=== PATIENT | female | born 1985 | race Caucasian/White ===

== ENCOUNTER 2020-06-16 12:32 | Outpatient (REF) | payer BC, SELFPAY ==
[2020-06-16 12:59] LABS: COVID-19 Test Negative (Negative)
== END 2020-06-16 12:33 | disposition home or self-care (01) ==
LOC: HO.LAB 12:32
PROVIDERS: Visit Provider Internal Medicine
DX: Z20.828 Contact with and (suspected) exposure to other viral communicable diseases (principal)
CPT/HCPCS: 87635

== ENCOUNTER 2020-06-20 12:01 | Outpatient (REF) | payer BC, SELFPAY ==
[2020-06-20 12:21] LABS: COVID-19 Test Negative (Negative)
== END 2020-06-20 12:02 | disposition home or self-care (01) ==
LOC: HO.LAB 12:01
PROVIDERS: Visit Provider Internal Medicine
DX: Z20.828 Contact with and (suspected) exposure to other viral communicable diseases (principal)
CPT/HCPCS: 87635

== ENCOUNTER 2020-07-15 17:44 | Outpatient (REF) | payer OTHER, BC, SELFPAY ==
[2020-07-15 18:24] LABS: COVID-19 Test Negative (Negative); IDNOW Serial# 55D5AD1C
== END 2020-07-15 17:45 | disposition home or self-care (01) ==
LOC: HO.EMPCOV 17:44
PROVIDERS: Visit Provider Internal Medicine
DX: Z20.828 Contact with and (suspected) exposure to other viral communicable diseases (principal)
CPT/HCPCS: 87635; C9803

== ENCOUNTER 2020-11-29 02:58 | Emergency (ER) | payer BC, SELFPAY ==
[2020-11-29 03:01] VITALS: RESP 16; BMI 21.2
[2020-11-29] MEDS: 0.9 % Sodium Chloride 1,000 ML 999 ML IV (03:09)
[2020-11-29] MEDS: Ketorolac Tromethamine 30 MG/ML VIAL IVPUSH (03:09)
[2020-11-29 03:10] LABS: MANUAL DIFF FLAG NO
[2020-11-29 03:11] LABS: Basophils Percent Auto 0.3 % (0-2); Eosinophils Absolute Auto 0.2 X10*3/uL (0.0-0.4); Eosinophils Percent Auto 1.4 % (0-4); Hematocrit 34.8 % (37-47); Hemoglobin 11.6 g/dl (12.0-16.0); Imm Gran Abs Auto 0.05 X10*3/uL (0.00-0.03); Imm Gran Pct Auto 0.4 % (0.0-0.4); Lymphocytes Absolute Auto 1.8 X10*3/uL (1.2-4.9); Lymphocytes Percent Auto 15.1 % (20-40); Mean Corpuscular HGB Conc 33.3 g/dl (31.0-35.0); Mean Corpuscular Hemoglobin 29.7 pg (27.0-33.0); Mean Corpuscular Volume 89.2 fL (80-98); Mean Platelet Volume 10.6 fL (9.4-12.3); Monocytes Absolute Auto 0.9 X10*3/uL (0.1-1.2); Monocytes Percent Auto 7.5 % (2-11); Neutrophils Absolute Auto 9.1 X10*3/uL (2.0-8.3); Neutrophils Percent Auto 75.3 % (45-73); Platelet Count 189 X10*3/uL (160-400); Red Cell Distribution Width 11.8 % (11.0-16.0); White Blood Count 12.2 X10*3/uL (4.8-10.8)
[2020-11-29 03:39] LABS: Alanine Aminotransferase 11 U/L (0-31); Albumin Level 4.1 g/dL (3.5-5.0); Alkaline Phosphatase 53 U/L (39-117); Anion Gap 12 (12-20); Aspartate Amino Transferase 14 U/L (5-31); Bilirubin Direct < 0.2 mg/dL (0.0-0.5); Bilirubin Total 0.3 mg/dL (0.0-1.0); Blood Urea Nitrogen 14 mg/dL (9-16); Calcium 8.8 mg/dL (8.4-10.2); Carbon Dioxide 28 mmol/L (22-29); Chloride 103 mmol/L (96-108); Estimated Glomerular Filt Rate > 60; Glucose Random 118 mg/dL (60-115); Lipase 45 U/L (8-78); Potassium 4.4 mmol/L (3.3-5.1); Sodium 139 mmol/L (135-145); Total Protein 6.8 g/dL (6.5-8.0)
--- NOTE | 2020-11-29 03:59 | ED_ITS ---
HPI - Abdominal Pain General Chief Complaint: Abdominal Pain Stated Complaint: Abd pain Time Seen by Provider: 11/29/20 03:01 Related Data Previous Rx's Medication Instructions Recorded ibuprofen 400 mg PO Q6H PRN #20 tab 11/29/20 ondansetron 4 mg PO TID PRN 5 Days #10 tab 11/29/20 Allergies Allergy/AdvReac Type Severity Reaction Status Date / Time adenosine [ADENOSINE] AdvReac Unknown VOMITING Unverified 05/12/20 18:09 Physical Exam Vital Signs: Vital Signs: Last Vital Signs Resp 16 11/29/20 03:01 Body Mass Index 21.2 MDM - Abdominal Pain Lab Data Result diagrams: 11/29/20 03:05 11/29/20 03:05 Labs: Lab Results 11/29/20 11/29/20 Range/Units 03:05 03:05 WBC 12.2 H (4.8-10.8) X10*3/uL RBC 3.90 L (4.20-5.50) X10*6/uL Hgb 11.6 L (12.0-16.0) g/dl Hct 34.8 L (37-47) % MCV 89.2 (80-98) fL MCH 29.7 (27.0-33.0) pg MCHC 33.3 (31.0-35.0) g/dl RDW 11.8 (11.0-16.0) % Plt Count 189 (160-400) X10*3/uL MPV 10.6 (9.4-12.3) fL Immature Gran % (Auto) 0.4 (0.0-0.4) % Neut % (Auto) 75.3 H (45-73) % Lymph % (Auto) 15.1 L (20-40) % [place] % (Auto) 7.5 (2-11) % Eos % (Auto) 1.4 (0-4) % Baso % (Auto) 0.3 (0-2) % Lymph # (Auto) 1.8 (1.2-4.9) X10*3/uL [place] # (Auto) 0.9 (0.1-1.2) X10*3/uL Eos # (Auto) 0.2 (0.0-0.4) X10*3/uL Baso # (Auto) 0.0 (0.0-0.2) X10*3/uL Abs Immat Gran (auto) 0.05 H (0.00-0.03) X10*3/uL Absolute Neuts (auto) 9.1 H (2.0-8.3) X10*3/uL Absolute Nucleated RBC 0.000 (0.0-0.012) X10*3/uL Nucleated RBC % (auto) 0.0 (0.0-0.2) /100WBC Sodium 139 (135-145) mmol/L Potassium 4.4 (3.3-5.1) mmol/L Chloride 103 (96-108) mmol/L Carbon Dioxide 28 (22-29) mmol/L Anion Gap 12 (12-20) BUN 14 (9-16) mg/dL Creatinine 0.80 (0.5-1.4) mg/dL Estim Creat Clear Calc TNP Estimated GFR > 60 Random Glucose 118 H (60-115) mg/dL Calcium 8.8 (8.4-10.2) mg/dL Total Bilirubin 0.3 (0.0-1.0) mg/dL Direct Bilirubin < 0.2 (0.0-0.5) mg/dL AST 14 (5-31) U/L ALT 11 (0-31) U/L Alkaline Phosphatase 53 (39-117) U/L Total Protein 6.8 (6.5-8.0) g/dL Albumin 4.1 (3.5-5.0) g/dL Lipase 45 (8-78) U/L Discharge Plan Discharge Clinical Impression: Abdominal pain Patient Disposition: Home, Self-Care Instructions: Abdominal Pain (ED) Additional Instructions: Risk of ovarian torsion. Risk of kidney stones exists. Worsened pain return to the emergency department. Prescriptions: New ibuprofen 400 mg tablet 400 mg PO Q6H PRN (Reason: pain) Qty: 20 RF: 0 ondansetron 4 mg tablet,disintegrating 4 mg PO TID PRN (Reason: nausea and vomiting) 5 Days Qty: 10 RF: 0 Referrals: Physician,Unknown [Primary Care Provider] - 2 days PMF Social History Social History Smoking Status: Current every day smoker Use of substances other than those prescribed or required for medical reasons: No Advance Directives: No
--- NOTE | 2020-11-29 04:04 | ED.ABDPAIN ---
HPI - Abdominal Pain General Chief Complaint: Abdominal Pain Stated Complaint: Abd pain Time Seen by Provider: 11/29/20 03:01 History of Present Illness HPI narrative: Patient is a 35-year-old female presents today with having abdominal pain and now left lower quadrant. 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 Patient complained of some mild nausea. Pain was extreme and extremely sudden in onset. Patient denies any coughing congestion upper respiratory symptom free no systemic complaints. Related Data Previous Rx's Medication Instructions Recorded ibuprofen 400 mg PO Q6H PRN #20 tab 11/29/20 ondansetron 4 mg PO TID PRN 5 Days #10 tab 11/29/20 Allergies Allergy/AdvReac Type Severity Reaction Status Date / Time adenosine [ADENOSINE] AdvReac Unknown VOMITING Unverified 05/12/20 18:09 Review of Systems Review of Systems No cough No congestion no respiratory symptoms Currently having her menstruation All systems reviewed otherwise negative Yes all other systems are reviewed and are negative Physical Exam Vital Signs: Vital Signs: Last Vital Signs Resp 16 11/29/20 03:01 Body Mass Index 21.2 Appearance: Alert. Oriented X3. No acute distress. Eyes: Pupils equal, round and reactive to light. ENT: Pharynx normal. Neck: Normal inspection. Neck supple. No lymph nodes noted. No crepitus CVS: Normal heart rate and rhythm. Pulses normal. Normal S1 and S2 Respiratory: No respiratory distress. Breath sounds normal. No Wheezing. No rales Abdomen: Soft and nontender. No rigidity. No distention. good BS x4 Skin: Skin warm and dry. Normal skin color. Normal skin turgor. Extremities: No lower extremity edema. Neurovascular intact to all extremities. No Lacerations. No Rash Neuro: Oriented X 3. No motor deficit. No sensory deficit. Moving all extermities. No slurred speech MDM - Abdominal Pain MDM Narrative Medical decision making narrative: Patient is currently undergoing IVF therapy. She is sure she is not . Labs and urine will be sent. Patient refused ultrasound. Understood the risk of having torsion, kidney stone. Patient just wants to go home. Given Toradol here in the emergency department. Patient told the condition worsens to return immediately. Currently in stable condition Differential Diagnosis Differential diagnosis: Likely abdominal pain Lab Data Result diagrams: 11/29/20 03:05 11/29/20 03:05 Labs: Lab Results 11/29/20 11/29/20 Range/Units 03:05 03:05 WBC 12.2 H (4.8-10.8) X10*3/uL RBC 3.90 L (4.20-5.50) X10*6/uL Hgb 11.6 L (12.0-16.0) g/dl Hct 34.8 L (37-47) % MCV 89.2 (80-98) fL MCH 29.7 (27.0-33.0) pg MCHC 33.3 (31.0-35.0) g/dl RDW 11.8 (11.0-16.0) % Plt Count 189 (160-400) X10*3/uL MPV 10.6 (9.4-12.3) fL Immature Gran % (Auto) 0.4 (0.0-0.4) % Neut % (Auto) 75.3 H (45-73) % Lymph % (Auto) 15.1 L (20-40) % [place] % (Auto) 7.5 (2-11) % Eos % (Auto) 1.4 (0-4) % Baso % (Auto) 0.3 (0-2) % Lymph # (Auto) 1.8 (1.2-4.9) X10*3/uL [place] # (Auto) 0.9 (0.1-1.2) X10*3/uL Eos # (Auto) 0.2 (0.0-0.4) X10*3/uL Baso # (Auto) 0.0 (0.0-0.2) X10*3/uL Abs Immat Gran (auto) 0.05 H (0.00-0.03) X10*3/uL Absolute Neuts (auto) 9.1 H (2.0-8.3) X10*3/uL Absolute Nucleated RBC 0.000 (0.0-0.012) X10*3/uL Nucleated RBC % (auto) 0.0 (0.0-0.2) /100WBC Sodium 139 (135-145) mmol/L Potassium 4.4 (3.3-5.1) mmol/L Chloride 103 (96-108) mmol/L Carbon Dioxide 28 (22-29) mmol/L Anion Gap 12 (12-20) BUN 14 (9-16) mg/dL Creatinine 0.80 (0.5-1.4) mg/dL Estim Creat Clear Calc TNP Estimated GFR > 60 Random Glucose 118 H (60-115) mg/dL Calcium 8.8 (8.4-10.2) mg/dL Total Bilirubin 0.3 (0.0-1.0) mg/dL Direct Bilirubin < 0.2 (0.0-0.5) mg/dL AST 14 (5-31) U/L ALT 11 (0-31) U/L Alkaline Phosphatase 53 (39-117) U/L Total Protein 6.8 (6.5-8.0) g/dL Albumin 4.1 (3.5-5.0) g/dL Lipase 45 (8-78) U/L Discharge Plan Discharge Clinical Impression: Abdominal pain Patient Disposition: Home, Self-Care Instructions: Abdominal Pain (ED) Additional Instructions: Risk of ovarian torsion. Risk of kidney stones exists. Worsened pain return to the emergency department. Prescriptions: New ibuprofen 400 mg tablet 400 mg PO Q6H PRN (Reason: pain) Qty: 20 RF: 0 ondansetron 4 mg tablet,disintegrating 4 mg PO TID PRN (Reason: nausea and vomiting) 5 Days Qty: 10 RF: 0 Referrals: Physician,Unknown [Primary Care Provider] - 2 days PMFSH Past Medical History Attestation statement: The following information was validated with the patient. Social History Social History Smoking Status: Current every day smoker Use of substances other than those prescribed or required for medical reasons: No Advance Directives: No
== END 2020-11-29 04:10 | disposition home or self-care (01) ==
PROVIDERS: Emergency Provider Emergency Medicine Emergency Medical Services
DX: R10.32 Left lower quadrant pain (principal); F17.200 Nicotine dependence, unspecified, uncomplicated
CPT/HCPCS: 36415; 80048; 80076; 83690; 85025; 96361; 96374; 99284; J1885

== ENCOUNTER 2021-08-27 01:46 | Outpatient (REF) | payer BC, SELFPAY ==
[2021-08-27 02:33] LABS: HCG Quantitative 8925 mIU/mL
== END 2021-08-27 01:47 | disposition home or self-care (01) ==
LOC: HO.LAB 01:46
PROVIDERS: Nurse Practitioner Family; PCP Internal Medicine; Visit Provider Internal Medicine
DX: O09.511 Supervision of elderly primigravida, first trimester (principal); Z32.01 Encounter for pregnancy test, result positive; Z3A.00 Weeks of gestation of pregnancy not specified
CPT/HCPCS: 36415; 84702

== ENCOUNTER 2021-08-30 07:42 | Outpatient (REF) | payer OTHER, SELFPAY ==
[2021-08-30 08:18] LABS: COVID-19 Test Negative (Negative); IDNOW Serial# 9DD0AD1C
== END 2021-08-30 07:43 | disposition home or self-care (01) ==
LOC: HO.LAB 07:42
PROVIDERS: Visit Provider Internal Medicine
DX: Z20.822 Contact with and (suspected) exposure to COVID-19 (principal)
CPT/HCPCS: 87635

== ENCOUNTER 2022-01-17 05:27 | Outpatient (REF) | payer OTHER, SELFPAY ==
[2022-01-17 06:03] LABS: COVID-19 Test Negative (Negative)
== END 2022-01-17 05:28 | disposition home or self-care (01) ==
LOC: HO.LAB 05:27
PROVIDERS: Visit Provider Internal Medicine
DX: Z20.822 Contact with and (suspected) exposure to COVID-19 (principal)
CPT/HCPCS: 87635